=== PATIENT | male | born 1945 | race Caucasian/White ===

== ENCOUNTER 2016-12-11 16:39 | Inpatient (IN) | payer MEDICARE, OTHER ==
[~2016-12-11] VITALS: Ht 177.8 cm; Wt 105.7 kg
--- NOTE | ~2016-12-11 | DS ---
PATIENT'S NAME: CHARLIE ALVAREZ [facility] AGE: 71 Y [address] ROOM: [address] [address] LOCATION: GPCU ADMIT DATE: 12/11/2016 Discharge Summary DISCHARGE DATE: 12/12/2016 FAMILY PHYSICIAN: Physician, Unknown ATTENDING PHYSICIAN: Hi Matt PRINCIPAL DISCHARGE DIAGNOSIS: Atrial flutter with rapid ventricular response. SECONDARY DIAGNOSES: 1. Coronary artery disease, status post myocardial infarction. 2. Hypertension, essential. 3. Hyperlipidemia. 4. Obesity with a BMI of 33.4. CONSULTATIONS: Dr. Kent of Cardiology. PROCEDURE: Echocardiogram. BRIEF SUMMARY OF FINDINGS: 1. Left ventricular ejection fraction 60% to 65% with normal biventricular systolic function, mild biatrial enlargement. 2. Grade 2 pseudonormal diastolic function. 3. Right ventricular systolic pressure 41 mmHg. BRIEF SUMMARY: Mr. Alvarez is a 71-year-old male, who presented to the [facility] with complaints of rapid heart rate. He was transferred here for Cardiology evaluation yesterday. He has been having diaphoresis on and off for 3 days, being cold and clammy. He was short of breath, dizzy, and lightheaded associated with it. He did not have any chest pain. He did not have any recent changes in medications or diet. There were no other particular associated findings. He was placed on heparin drip. Serial troponins were negative. His electrolytes are normal today. Magnesium is 2.0. TSH on admission was 1.65 and his free T4 was 0.9. Echocardiogram is as above. He has converted to normal sinus rhythm at this time. EKG around 1 p.m. showed normal sinus rhythm with a rate of 63. On discussion with Dr. Kent, the patient has been started on sotalol 80 p.o. b.i.d., he will be discharged on that. Changing him from a lower dose of aspirin to 325 mg daily. FOLLOWUP INSTRUCTIONS: He will follow up with Dr. Kent in 2 weeks. He should discuss sleep study at followup for some possible symptoms of this and his biatrial enlargement. PATIENT'S NAME: CHARLIE ALVAREZ [facility] AGE: 71 Y [address] ROOM: [address] [place], [place] [address] LOCATION: GPCU ADMIT DATE: 12/11/2016 Discharge Summary DISCHARGE DATE: 12/12/2016 FAMILY PHYSICIAN: Physician, Unknown ATTENDING PHYSICIAN: Hi Matt INSTRUCTIONS AT DISCHARGE: 1. Diet. Citizen Of [place] heart Association low-fat. 2. Activity as tolerated. 3. He should see his PCP within a week and see Dr. Kent in 2 weeks. He will be discharged home. DISCHARGE MEDICATIONS: 1. Atorvastatin 80 mg p.o. at bedtime. 2. Enalapril 2.5 mg p.o. daily. 3. Metoprolol 25 mg b.i.d., is being stopped. 4. Prilosec 20 mg p.o. daily. 5. PreserVision tablets daily. 6. Garlic daily. 7. Ascorbic acid daily. 8. Lactobacillus daily. 9. Naproxen 220 b.i.d. 10. Nitrostat 0.4 sublingual p.r.n. 11. Clindamycin with dental appointments. 12. Enteric-coated aspirin 325 mg p.o. daily [id number]. 13. Sotalol 80 mg p.o. b.i.d., #60, scripts will be given. CONDITION ON DISCHARGE: Good. Greater than 30 minutes spent in the discharge process. BRANDO MCPHERSON MD LM/marisel /[id number] d: 12/13/16 0449 t: 12/16/16 1830, DISCHARGE SUMMARY
--- NOTE | ~2016-12-11 | HP ---
PATIENT'S NAME: CHARLIE ALVAREZ [facility] AGE: 71 Y [address] ROOM: [place] [address] LOCATION: GPCU ADMIT DATE: 12/11/2016 History & Physical DISCHARGE DATE: FAMILY PHYSICIAN: PHYSICIAN, UNKNOWN ATTENDING PHYSICIAN: CORTEZ CHIRINOS DATE OF SERVICE: CHIEF COMPLAINT: Aflutter with RVR. HISTORY OF PRESENT ILLNESS: This is a 71-year-old male with a history of hypertension, coronary artery disease, status post stenting in 2013 who presented initially at an outside facility with a 3-day history of on and off diaphoresis, cold and clammy feeling. The patient tells me that he had been experiencing these symptoms while at rest and he thinks he might have mostly had similar symptoms longer than surpassed the 2 to 3 days except it has gotten particularly worse in the past 2 to 3 days. Symptoms are also associated with brief shortness of breath and associated dizziness and lightheadedness especially with getting up from a seated position and ambulation. The patient denies any chest pain in relation to this. The patient denies any changes in his medications or diet. Denies any fever, chills, cough, nausea, vomiting, diarrhea, or constipation. The patient during my visit is resting comfortably and is not complaining of these symptoms currently and the last such episodes that he had was about 9 o'clock this morning. The patient upon presentation there was found to have fast heart rate with narrow complex tachycardia in the 150s to 160s and got a couple dose of adenosine, which slowed down his rhythm and at that time was noted to be in aflutter rhythm, which was something new for him. PAST MEDICAL HISTORY: 1. Essential hypertension. 2. Coronary artery disease, status post stents in 2013. 3. Hyperlipidemia. 4. Morbid obesity. SOCIAL HISTORY: The patient uses occasional alcohol. No history of smoking or drug use. FAMILY HISTORY: The patient has history of coronary artery disease in his father who had bypass surgery in the 70s. REVIEW OF SYSTEMS: All systems have been reviewed and were all negative except as described in PATIENT'S NAME: CHARLIE ALVAREZ [facility] AGE: 71 Y [address] ROOM: [place] [address] LOCATION: GPCU ADMIT DATE: 12/11/2016 History & Physical DISCHARGE DATE: FAMILY PHYSICIAN: PHYSICIAN, UNKNOWN ATTENDING PHYSICIAN: CORTEZ CHIRINOS the [facility]. PHYSICAL EXAMINATION: VITAL SIGNS: Afebrile, heart rate 70s to 80s, sinus, blood pressure 120/82, respiratory rate 16, and saturating 95% on room air. GENERAL: The patient is awake, alert, and oriented x3 in no acute distress. HEENT: Moist mucous membranes. No scleral icterus or conjunctival pallor noted. NECK: Without lymphadenopathy. CHEST: Clear to auscultation bilaterally. HEART: S1, S2, regular rate and rhythm. ABDOMEN: Soft, nontender, nondistended with positive bowel sounds. NEURO: Grossly nonfocal. EXTREMITIES: Moves all his extremities. SKIN: Without rash or lesions. MUSCULOSKELETAL: No joint tenderness, effusion, or erythema noted. ASSESSMENT AND PLAN: 1. Aflutter with rapid ventricular response, new-onset. The patient transferred here on a diltiazem drip and will continue this. We will get basic labs including CBC, renal, mag, and thyroid function panel. We will put the patient on a heparin drip and continue this. We will also get a 2D echo and await Cardiology followup. The patient is well-known to Dr. Kent. 2. Coronary artery disease, status post cardiac cath with stents in 2013. We will continue his cardiac meds. The patient does not report any chest symptoms at this point. 3. Essential hypertension. We will minimize resuming all his blood pressure medications since blood pressure is on soft side and he is on Cardizem drip as well. 4. Hyperlipidemia. We will continue the patient's high-dose statin therapy. 5. Morbid obesity. The patient will require lifestyle modifications and he is to have a sleep study done as outpatient for concerns of obstructive sleep apnea. 6. Deep vein thrombosis prophylaxis. We will use heparin drip as above. MD ALFONSO WALLACE/taylorl /[id number] D: [id number] T: [id number] HISTORY & PHYSICAL
--- NOTE | ~2016-12-11 | ECHO ---
Transthoracic Echocardiography Report (TTE) Demographics Patient Name CHARLIE ALVAREZ Date of Study 12/12/2016 Patient Number [id number] Visit Number [id number] Date of 1945 Room Number G6303 Gender Male Number Age 71 year(s) Referring [facility] Last Waxer Temi Longoria RDCS, Physician Hi LOPEZ, RDMS, [employer] Physician Interpreting Yoli Gonzalez MD Gas Prover Physician Good Baird MD Supervising Ordering [facility] Hi BUENO/MLP Physician Nurse Stress Contracts Law Professor Conclusions Contractility Score Summary Normal Left Ventricular contractility was noted. Summary The estimated left ventricular ejection fraction is 60-65%. Normal biventricular systolic function. Mild biatrial enlargement. Sclerotic mitral and aortic valves with mild regurgitation. Diastolic assessment reveals Grade II pseudonormal diastolic function . There is mild pulmonary hypertension. The pulmonary pressure (RVSP) is 41 mmHg. Procedure Type of Study TTE procedure:2D Echocardiogram, M-Mode, Doppler , Color Doppler. Procedure Date Date: 12/12/2016 Start: 07:25 AM Study Location: Inpatient Portable Technical Quality: Fair due to body habitus. Indications:Atrial fibrillation. Additional Indications:CAD Appropriate Use Criteria: 9 Patient Status: Routine Rhythm: Within normal limits HR: 64 bpm BP: 128/63 mmHg Allergies - Penicillin. - Sulfa. M-Mode/2D Measurements LV Diastolic Dimension: 4.34 cm LV Systolic Dimension: 2.66 cm LV Septum Diastolic: 1.12 cm LV PW Diastolic: 1.12 cm AO Root Dimension: 3 cm Cardiac Output: 5.12 l/min AV Cusp Separation: 1.9 cm RV Diastolic Dimension: 2.89 cm LA volume: 87 ml IVC Inspiration: 1.5 cm LVOT: 2 cm RV Base: 4 cm LVOT VTI: 25.5 cm RV Mid: 3.1 cm LV Stroke volume: 80.07 ml TAPSE: 3.4 cm TDI-S': 13 cm/s Doppler Measurements AV Peak Velocity: 1.64 m/s MV Peak E-Wave: 0.81 m/s AV Peak Gradient: 10.76 mmHg MV Peak A-Wave: 0.52 m/s AV Mean Gradient: 6 mmHg MV E/A Ratio: 1.55 LVOT Peak Velocity: 1.13 m/s MV P1/2t: 57 msec TR Gradient:26.01 mmHg PV Peak Velocity: 0.8 m/s Estimated RAP:15 mmHg PV Peak Gradient: 2.55 mmHg Estimated RVSP: 41 mmHg Estimated PASP: 41.01 mmHg E' Septal Velocity: 0.06 m/s A' Septal Velocity: 0.07 m/s E' Lateral Velocity: 0.06 m/s A' Lateral Velocity: 0.07 m/s Findings Left Ventricle The left ventricle is normal in size . Mild concentric left ventricular hypertrophy. Diastolic assessment reveals Grade II pseudonormal diastolic function . Normal left ventricular systolic function. Right Ventricle Normal right ventricle structure and function. Left Atrium The left atrium is mildly dilated by LA volume index measurement. Right Atrium The right atrium is mildly dilated. The IVC is dilated consistent with elevated RA pressure. IVC measures 2.15 cms. Mitral Valve Mild mitral annular calcification. Mild mitral regurgitation by color Doppler. Mild to moderate calcification of the mitral valve. Aortic Valve The aortic valve is severely sclerotic. There is mild aortic regurgitation by color Doppler. Tricuspid Valve Normal appearing tricuspid valve. Trivial tricuspid regurgitation by color Doppler. There is mild pulmonary hypertension. The pulmonary pressure (RVSP) is 41 mmHg. Pulmonic Valve The pulmonic valve is not well visualized. Pericardial Effusion No evidence of pericardial effusion. Miscellaneous Visualized portions of the aortic root and ascending aorta appear normal in size. Pleural Effusion No evidence of pleural effusion. Contractility Score LV regional wall motion:(0-Non visualized 1-Normal 2-Hypokinesis 3-Akinesis 4-Dyskinesis 5-Aneurysm) Signature dtt: CINDY FRANCIS dtd: 12/12/16 0725 Physician Self Edit
[2016-12-11] MEDS ORDERED: LOPRESSOR25 MG PO (17:39)
[2016-12-11] MEDS ORDERED: VASOTEC2.5 MG PO (17:39)
[2016-12-11] MEDS ORDERED: LIPITOR80 MG PO (17:40)
[2016-12-11] MEDS ORDERED: ECOTRIN325 MG PO (17:42)
[2016-12-11] MEDS ORDERED: PRESERVISION A1 EAC2 PO (17:43)
[2016-12-11] MEDS ORDERED: ASCORBIC ACID500 MG PO (17:44)
[2016-12-11] MEDS ORDERED: GARLIC1000 MG PO (17:44)
[2016-12-11] MEDS ORDERED: PRILOSEC20 MG PO (17:45)
[2016-12-11] MEDS ORDERED: CULTURELLE1 CAP PO (17:46)
[2016-12-11] MEDS ORDERED: ALEVE220 M1 PO (17:47)
[2016-12-11] MEDS ORDERED: NITROSTAT0.4 MG SL (17:47)
[2016-12-11] MEDS ORDERED: CLINDAMYCIN HC300 MG PO (17:49)
--- NOTE | 2016-12-11 17:55 | NUR ---
Patient has been feeling short of breath on exertion and clammy since 12/07/16. Patient went to [facility], found to be in SVT rates 150's given adenosine 6 mg and then 12 mg, and 5 mg lopressor, converted to Afib and was started on cardizem and heparin gtt's and tranferred to PCU. Patient was SR on arrival to floor, denies CP, shortness of breath or dizziness.
[2016-12-11 18:47] LABS: BASOPHIL % 0.4 %; EOSINOPHIL # 0.1 K/uL (0.0-0.5); EOSINOPHIL % 1.1 %; HEMATOCRIT 46.7 % (37.0-53.0); HEMOGLOBIN 16.1 g/dL (11.0-16.0); IMMATURE GRANULOCYTE % 0.2 %; LYMPHOCYTE # 1.8 K/uL (0.8-4.0); LYMPHOCYTE % 21.9 %; MCH 32.3 pg (27.0-34.0); MCHC 34.5 gm/dL (32.0-36.5); MCV 93.6 fl (83.0-98.0); MONOCYTE # 0.7 K/uL (0.0-1.0); MONOCYTE % 8.8 %; NEUTROPHIL # (ANC) 5.7 K/uL (1.4-9.0); NEUTROPHIL % 67.6 %; NRBC % 0 /100WBC (0-0.00); PLATELET COUNT 249 K/uL (150-450); RBC 4.99 M/uL (3.50-5.50); RDW-CV 13.6 % (11.9-14.6); WBC 8.4 K/uL (4.0-11.0)
[2016-12-11 18:54] LABS: INR - (THERAPEUTIC) 1.01 (0.92-1.07); PROTIME 10.6 SECONDS (9.8-11.4)
[2016-12-11 19:05] LABS: ALBUMIN 3.7 gm/dL (3.5-5.0); BLOOD UREA NITROGEN 13 mg/dL (6-24); CALCIUM 8.9 mg/dL (8.5-10.5); CHLORIDE 108 mMol/L (96-110); CO2 27 mMol/L (22-32); CREATININE 0.9 mg/dL (0.6-1.3); MAGNESIUM 2.2 mg/dL (1.8-2.6); PHOSPHORUS 2.9 mg/dL (2.5-4.9); SODIUM 140 mMol/L (135-145)
--- NOTE | 2016-12-12 06:49 | NUR ---
Significant Event: Patient is alert/oriented x3. Vital signs stable. Continues on cardizem drip at 5 mg/hr per MD's orders, even though patient is in sinus rhythm with rates 60-90's. Heparin infusing at 1200 units/hr, next PTT-HP to be drawn at 0700. Patient denies any pain. Follow up: Echo today and cardiology to see.
[2016-12-12 07:22] LABS: ALBUMIN 3.2 gm/dL (3.5-5.0); ANION GAP 11.2 (10.0-19.0); CALCIUM 8.6 mg/dL (8.5-10.5); PHOSPHORUS 2.9 mg/dL (2.5-4.9); POTASSIUM 4.2 mMol/L (3.7-5.1)
--- NOTE | 2016-12-12 14:26 | NUR ---
Introduced self and role of care management to patient. He lives in [place] by himself. He states that he is able to do all his own ADL's. He states that he has friends that assist as needed. He plans on returning home on discharge. He denies any needs at this time. Will contine to follow.
[2016-12-12] MEDS ORDERED: BETAPACE (GENER80 MG PO (14:50)
--- NOTE | 2016-12-12 16:06 | NUR ---
Significant event: Patient switched to oral Sotalol. Walked in halls, showered. Remains in SR. Denies dizziness, shortness of breath and chest pain. Dismissed to home. Walked patient out to private auto. Educated patient on new medication and A-Fib.
== END 2016-12-12 15:55 | disposition disaster alternative care site (69) | DRG 310 ==
LOC: GPCU 16:39
PROVIDERS: ADMIT Internal Medicine
DX: I48.92 Unspecified atrial flutter (principal); I10 Essential (primary) hypertension; E78.5 Hyperlipidemia, unspecified; I25.10 Atherosclerotic heart disease of native coronary artery without angina pectoris; E66.9 Obesity, unspecified; Z68.33 Body mass index [BMI] 33.0-33.9, adult; I25.2 Old myocardial infarction; Z95.5 Presence of coronary angioplasty implant and graft; Z82.49 Family history of ischemic heart disease and other diseases of the circulatory system; Z79.82 Long term (current) use of aspirin
CPT/HCPCS: J1644; J7040